=== PATIENT | male | born 2000 | race Caucasian/White ===

== ENCOUNTER 2019-09-07 18:59 | Emergency (ER) | payer BC ==
--- NOTE | 2019-09-07 19:40 | ED ---
Adult Trauma - HPI Summary HPI Summary: 19 y/o male presented to [facility] complaining of neck pain present after an accident on a trampoline days ago when the pt was attempting a backflip and landed on his head. Pt notes no numbness, tingling, or weakness. He was dizzy with no pain initially after the accident, and his neck became tender later. He is not on pain medication. Pt drinks alcohol and smokes cigarettes occasionally , and notes Hx of arm and nose surgery. Medications reviewed. Allergies noted. - History of Current Complaint Chief Complaint: EDNeckComplaint Stated Complaint: NECK INJURY PER PT Time Seen by Provider: 09/07/19 19:27 Hx Obtained From: Patient Mechanism of Injury: Fall Current Severity: Mild Pain Intensity: 3 Pain Scale Used: 0-10 Numeric Location: Neck Aggravating Factor(s): Nothing Alleviating Factor(s): Nothing Associated Signs & Symptoms: Positive: Negative - Allergy/Home Medications Allergies/Adverse Reactions: Allergies Allergy/AdvReac Type Severity Reaction Status Date / Time No Known Allergies Allergy Verified 09/07/19 19:14 PMH/Surg Hx/FS Hx/Imm Hx Sensory History: Denies: Hx Legally Blind, Hx Deafness Opthamlomology History: Denies: Hx Legally Blind EENT History: Denies: Hx Deafness Infectious Disease History: No Infectious Disease History: Denies: Traveled Outside the [place] in Last 30 Days - Family History Known Family History: Negative: Blood Disorder - Social History Alcohol Use: Occasionally Smoking Status (MU): Current Some Day Smoker Review of Systems Positive: Myalgia Neurological: Other - dizziness - resolved Negative: Weakness, Paresthesia, Numbness All Other Systems Reviewed And Are Negative: Yes Physical Exam - Summary Physical Exam Summary: Constitutional: Well-developed, Well-nourished, Alert. (-) Distressed Skin: Warm, Dry HENT: Normocephalic; Atraumatic Eyes: Conjunctiva normal Neck: Musculoskeletal ROM normal neck. (-) JVD, (-) Stridor, (-) Tracheal deviation. Cardio: Rhythm regular, rate normal, Heart sounds normal; Intact distal pulses; Radial pulses are 2+ and symmetric. (-) Murmur Pulmonary/Chest wall: Effort normal. (-) Respiratory distress, (-) Wheezes, (-) Rales Abd: Soft, (-) tenderness, (-) Distension, (-) Guarding, (-) Rebound Musculoskeletal: (-) Edema. Tenderness of bilateral trapezius. No midline tenderness. Lymph: (-) Cervical adenopathy Neuro: Alert, Oriented x3. 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 Able to abduct fingers against resistance. Able to make OK sign and maintain against resistance bilat. Able to touch thumb to all fingers bilat. Sensations in all dermatomes normal Psych: Mood and affect Normal Triage Information Reviewed: Yes Vital Signs On Initial Exam: Initial Vitals Temp Pulse Resp BP Pulse Ox 98.7 F 71 15 157/59 99 09/07/19 19:12 09/07/19 19:12 09/07/19 19:12 09/07/19 19:12 09/07/19 19:12 Vital Signs Reviewed: Yes Procedures - Sedation Patient Received Moderate/Deep Sedation with Procedure: No Diagnostics - Vital Signs Vital Signs Temp Pulse Resp BP Pulse Ox 09/07/19 19:12 98.7 F 71 15 157/59 99 - Laboratory Lab Statement: Any lab studies that have been ordered have been reviewed, and results considered in the medical decision making process. Adult Trauma Course/Dx - Course Course Of Treatment: Patient is here with pain in his bilateral trapezius after a trampoline accident 2 days ago. On the initial accident, patient had no pain. Patient's pain developed a couple of hours after the accident. Patient was concerned as his pain was worse today than it was yesterday. I educated patient on the typical course of trapezius strain. Patient no midline neck tenderness and no evidence of neurologic injury. Patient does not need a CT scan of his spine. Patient was offered Motrin but declined. Patient was given a heat pack. Patient was educated on conservative management and was comfortable for discharge - Diagnoses Provider Diagnoses: Trapezius strain Discharge ED - Sign-Out/Discharge Documenting (check all that apply): Patient Departure - dc - Discharge Plan Condition: Stable Disposition: HOME Patient Education Materials: Muscle Strain (DC) Referrals: Care [facility] [Outside] Additional Instructions: PLEASE RETURN TO EMERGENCY DEPARTMENT FOR WEAKNESS, NUMBNESS, TINGLING, OR OTHER CONCERNS. Apply heat to your trapezius and take 600mg Advil every 6 hours. You can add 1000mg Tylenol every 6 hours if needed. Please follow up a primary care physician in 1 week if symptoms persist. - Billing Disposition and Condition Condition: STABLE Disposition: Home - Attestation Statements Document Initiated by Andreina: Yes Documenting Scribe: Ricardo Kinght Provider For Whom Andreina is Documenting (Include Credential): Douglas Villanueva MD Scribe Attestation: Ricardo Andrews, scribed for Douglas Villanueva MD on 09/07/19 at 2111. Scribe Documentation Reviewed: Yes Provider Attestation: The documentation as recorded by the Ricardo garcia accurately reflects the service I personally performed and the decisions made by , Douglas Villanueva MD Status of Scribe Document: Viewed
[2019-09-07 20:00] VITALS: BP 0/0
== END 2019-09-07 19:58 | disposition home or self-care (01) ==
LOC: ED 18:59
DX: S16.1XXA Strain of muscle, fascia and tendon at neck level, initial encounter (principal); X50.9XXA Other and unspecified overexertion or strenuous movements or postures, initial encounter; Y93.44 Activity, trampolining; Y92.9 Unspecified place or not applicable; F17.210 Nicotine dependence, cigarettes, uncomplicated
CPT/HCPCS: 99281